=== PATIENT | male | born 1970 | race Caucasian/White ===

== ENCOUNTER 2018-01-27 11:31 | Emergency (ER) | payer OTHER ==
[2018-01-27 12:36] VITALS: RESP 18
--- NOTE | 2018-01-27 13:06 | ED PDOC ---
HPI: Male Pain Time Seen by Provider: 01/27/18 12:55 Chief Complaint (Nursing): Male Genitourinary Additional Complaint(s): Pt seen and examined at bedside with attending. 48M PMH HTN p/w being awoken at 0330 this AM with LEFT flank pain associated with urinary frequency and dysuria. He denies fevers, chills, nausea, or radiation of pain. Past Medical History Vital Signs: Last Vital Signs Temp 37.1 C 01/27/18 12:33 Pulse 64 01/27/18 12:33 Resp 18 01/27/18 12:33 BP 132/80 01/27/18 12:33 Pulse Ox 99 01/27/18 12:33 - Medical History PMH: Gall Bladder Disease, HTN Denies: HIV, Chronic Kidney Disease - Surgical History Surgical History: Appendectomy - Family History Family History: States: No Known Family Hx - Home Medications Home Medications: Ambulatory Orders Medication Instructions Recorded Losartan/Hydrochlorothiazide 1 tab PO DAILY 04/17/15 [Losartan-Hctz 50-12.5 mg Tab] Ciprofloxacin HCl [Cipro] 500 mg PO BID #20 tab 01/27/18 Tamsulosin [Flomax] 0.4 mg PO DAILY #5 cap 01/27/18 traMADol [Ultram] 50 mg PO Q8 #10 tab 01/27/18 - Allergies Allergies/Adverse Reactions: Allergies Allergy/AdvReac Type Severity Reaction Status Date / Time No Known Allergies Allergy Verified 04/17/15 15:43 Review of Systems ROS Statement: Except As Marked, All Systems Reviewed And Found Negative Genitourinary Male: Positive for: Dysuria, Frequency, Penile Discharge (mucous) Physical Exam - Reviewed Vital Signs Reviewed: Yes - Physical Exam Appears: Positive for: Well, Non-toxic Skin: Positive for: Normal Color, Warm Eye Exam: Positive for: Normal appearance, EOMI ENT: Positive for: Normal ENT Inspection Neck: Positive for: Supple Cardiovascular/Chest: Positive for: Regular Rate, Rhythm. Negative for: Murmur Respiratory: Positive for: Normal Breath Sounds. Negative for: Crackles, Wheezing Gastrointestinal/Abdominal: Positive for: Normal Exam, Bowel Sounds, Soft, Tenderness (on deep palpation suprapubic). Negative for: Rebound Back: Negative for: L CVA Tenderness, R CVA Tenderness Extremity: Positive for: Normal ROM. Negative for: Calf Tenderness Neurologic/Psych: Positive for: Alert, Oriented - Laboratory Results Result Diagrams: 01/27/18 13:27 01/27/18 13:27 - ECG O2 Sat by Pulse Oximetry: 99 Medical Decision Making Medical Decision Making: Suspect ureteral/kidney stone vs. UTI - CBC, CMP, UA, UCx - CT abd/pelvis w/o contrast Urine dip- Lg Blood, neg Nit/Adeola. CBC: leukocytosis - Flomax 0.4mg x1 - Cipro 500mg CT scan read as mild perinephric inflammation and punctate calculi Disposition - Clinical Impression Clinical Impression: Kidney stone - Disposition Referrals: Breezy Darling MD [Medical Doctor] - Disposition: Routine/Home Disposition Time: 15:25 Condition: FAIR Prescriptions: Ciprofloxacin HCl [Cipro] 500 mg PO BID #20 tab Tamsulosin [Flomax] 0.4 mg PO DAILY #5 cap traMADol [Ultram] 50 mg PO Q8 #10 tab Instructions: Kidney Stones in Adults Forms: [facility] [facility] ([place])
[2018-01-27 14:01] LABS: BASO % 0.3 % (0.0-2.0); EOS # 0.3 K/uL (0.0-0.7); EOS % 2.3 % (0.0-4.0); HEMOGLOBIN 14.6 g/dL (12.0-18.0); LYMPH # 1.8 K/uL (1.0-4.3); LYMPH % 13.4 % (20.0-40.0); MEAN CELL VOLUME 87.3 fl (80.0-94.0); MEAN CORPUSCULAR HEMOGLOBIN 27.9 pg (27.0-31.0); MEAN CORPUSCULAR HGB CONC 31.9 g/dL (33.0-37.0); MEAN PLATELET VOLUME 8.5 fl (7.2-11.7); MONO # 0.8 K/uL (0.0-0.8); NEUT # 10.4 K/uL (1.8-7.0); NRBC % 0.2 % (0.0-0.0); RBC 5.25 Mil/uL (4.40-5.90); RED CELL DISTRIBUTION WIDTH 14.7 % (11.5-14.5); WHITE BLOOD COUNT 13.3 K/uL (4.8-10.8)
[2018-01-27 14:07] LABS: ALB/GLOB RATIO 1.1 (1.0-2.1); ALBUMIN 4.5 g/dL (3.5-5.0); ALT/SGPT 24 U/L (21-72); AST/SGOT 30 U/L (17-59); BLOOD UREA NITROGEN 16 mg/dl (9-20); CALCIUM 9.7 mg/dL (8.4-10.2); GFR NON-AFRICAN AMERICAN > 60
[2018-01-27 14:52] LABS: URINE BILIRUBIN NEGATIVE (NEGATIVE); URINE BLOOD MODERATE (NEGATIVE); URINE CLARITY CLEAR (Clear); URINE COLOR YELLOW (YELLOW); URINE GLUCOSE (UA) NEG (Normal); URINE LEUKOCYTE ESTERASE NEG Leu/uL (Negative); URINE PROTEIN NEGATIVE (NEGATIVE); URINE UROBILINOGEN 0.2-1.0 mg/dL (0.2-1.0)
--- NOTE | 2018-01-27 15:09 | CT ---
Date of service: 01/27/2018 PROCEDURE: CT Abdomen and Pelvis without intravenous contrast HISTORY: LEFT flank pain COMPARISON: None. TECHNIQUE: Helical CT of the abdomen and pelvis was performed without oral or intravenous contrast as per referring physician request. Coronal and sagittal reformats were generated Contrast dose: None Radiation dose: Total exam DLP = 955.69 mGy-cm. This CT exam was performed using one or more of the following dose reduction techniques: Automated exposure control, adjustment of the mA and/or kV according to patient size, and/or use of iterative reconstruction technique. FINDINGS: LOWER THORAX: Limited thickening of the inferolateral margins of the right major fissure. Lung bases are otherwise unremarkable appearing. LIVER: Unremarkable. No gross lesion or ductal dilatation. GALLBLADDER AND BILE DUCTS: Prior cholecystectomy no evident. Clinically correlate. PANCREAS: Unremarkable. No gross lesion or ductal dilatation. SPLEEN: Unremarkable. ADRENALS: Unremarkable. No mass. KIDNEYS AND URETERS: Borderline left perinephric reactive changes are appreciated as well as surrounding the proximal to mid left ureter without definitive hydronephrosis. The distal left ureter is difficult to follow due to artifacts related to body habitus (adrenal problem throughout the mid to lower abdomen and pelvis sections) and the lack of contrast agents. Punctate intrarenal calculi are identified at the upper and lower poles right kidney. No right-sided obstructive uropathy appreciated. Urinary bladder is unremarkable. A small phlebolith is favored instead of a calculus close to the distal right ureter/ureterovesical junction region. VASCULATURE: Unremarkable. No aortic aneurysm. No aortic atherosclerotic calcification or mural plaque present. BOWEL: Postop changes suggest prior gastric sleeve or other gastric surgery. No bowel obstruction. Borderline descending colonic/sigmoid diverticular changes. No acute reaction related. APPENDIX: No CT evidence to suggest appendicitis grossly. PERITONEUM: Unremarkable. No free fluid. No free air. LYMPH NODES: Unremarkable. No enlarged lymph nodes. BLADDER: Unremarkable. REPRODUCTIVE: Unremarkable. BONES: No acute fracture. OTHER FINDINGS: None. IMPRESSION: 1. Borderline left perinephric and proximal periureteral reactive changes are suggested but without obvious hydronephrosis or hydroureter. Punctate calcification is appreciated approaching the distal left ureter region. The distal left ureter is difficult to follow due to body habitus related artifact. Contrast CT may be helpful if clinically warranted. 2. Infrequent punctate intrarenal calculi are seen at the upper and lower pole right kidney, with none identified at the left. 3. Borderline left sigmoid diverticulosis without definite acute findings. 4. Interval descending colonic/sigmoid cholecystectomy.
[2018-01-27 15:43] VITALS: BP 135/82; PULSE 66; TEMP 98.9; O2SAT 98
== END 2018-01-27 15:40 | disposition home or self-care (01) ==
LOC: H.ER 11:31
DX: N20.0 Calculus of kidney (principal); I10 Essential (primary) hypertension; Z90.49 Acquired absence of other specified parts of digestive tract